=== PATIENT | male | born 1955 | race Caucasian/White ===

== ENCOUNTER 2019-09-09 10:22 | Emergency (ER) | payer MEDICARE ==
[~2019-09-09] VITALS: Ht 185.4 cm; Wt 88.6 kg
[2019-09-09 10:33] VITALS: Ht 185.4 cm; Wt 88.6 kg
[2019-09-09] MEDS ORDERED: LIPITOR40 MG PO (10:35)
[2019-09-09] MEDS ORDERED: PLAVIX75 MG PO (10:35)
[2019-09-09] MEDS ORDERED: LISINOPRIL5 MG PO (10:35)
[2019-09-09] MEDS ORDERED: METOPROLOL TART25 MG PO (10:36)
[2019-09-09 11:14] LABS: HEMATOCRIT 48.5 % (42.0-54.0); LYMPHOCYTES 18.1 % (15-50); MCH 30.4 pg (26.0-34.0); MEAN PLATELET VOLUME 9.3 fL (7.4-10.4); PLATELET COUNT 241 10x3/uL (130-400); RBC 5.27 10x6/uL (4.20-6.10); RDW 13.1 % (11.5-14.5); WBC 11.1 10x3/uL (4.8-10.8)
[2019-09-09 11:20] LABS: CALC OSMOLALITY 271 mosm/kg (275-300); CALCIUM 8.9 mg/dL (8.5-10.1); CARBON DIOXIDE 25.8 mmol/L (21.0-32.0); CHLORIDE - SERUM 100 mmol/L (98-107); GLUCOSE 149 mg/dL (74-106); POTASSIUM - SERUM 3.8 mmol/L (3.5-5.1); SODIUM 134 mmol/L (136-145); UREA NITROGEN 14 mg/dL (7-18); eGFR NON AFRICAN AMERICAN 80 mL/min (90-120)
[2019-09-09 11:24] LABS: ALKALINE PHOSPHATASE 129 U/L (30-120); ALT (SGPT) 21 U/L (10-68); BILIRUBIN - TOTAL 0.86 mg/dL (0.2-1.3); PROTEIN - SERUM 8.6 g/dL (6.4-8.2)
[2019-09-09] MEDS ORDERED: FLAGYL500 MG PO (12:56)
[2019-09-09] MEDS ORDERED: LEVAQUIN750 MG PO (12:56)
[2019-09-09] MEDS ORDERED: HYDROCODON-ACE1 EAC2 PO (13:01)
[2019-09-09 13:44] VITALS: BP 143/86
== END 2019-09-09 13:48 | disposition home or self-care (01) ==
LOC: D.ER 10:22
PROVIDERS: Family Medicine
DX: K61.1 Rectal abscess (principal); I10 Essential (primary) hypertension; Z72.0 Tobacco use